=== PATIENT | male | born 1955 | race Asian ===

== ENCOUNTER 2020-04-23 11:14 | Emergency (ER) | payer MEDICARE, OTHER ==
[~2020-04-23] VITALS: Ht 167.6 cm; Wt 88.4 kg
--- NOTE | 2020-04-23 11:53 | NUR ---
PT AMBULATORY TO ROOM 36 W/ C/O NOT BEING ABLE TO URINATE SINCE LAST NOC. PT STATES HE TRIES TO GO AND IS UNABLE TO DO SO. PT ATTEMPTED TO GO TO RESTROOM X 1 W/O SUCCESS IN ED. BLADDER SCAN SHOWS 984 ML IN BLADDER. PT DENIES HX BPH. STATES HE HAD THIS ISSUE ONE OTHER TIME AND IT WENT AWAY ON ITS OWN. PT WAS SENT FROM PCP DR. JENSEN'S OFFICE. GASCA PLACED PER [facility] POLICY. PT RESTING ON GURNEY. NADN. MONITORS APPLIED. PT BP IMPROVED SIGNIFICANTLY AFTER GASCA PLACEMENT.
[2020-04-23 12:15] LABS: MEAN CORPUSCULAR HEMOGLOBIN 26.7 pg (27.5-34.5); MEAN CORPUSCULAR HGB CONC 32.4 g/dL (33.2-36.2); MEAN CORPUSCULAR VOLUME 82.3 fL (81-97); MEAN PLATELET VOLUME 8.8 fL (7.4-10.4); PLATELET COUNT 273 x10^3/uL (130-400); RED CELL DISTRIBUTION WIDTH 14.6 % (9.4-14.8)
[2020-04-23 12:19] LABS: ALBUMIN 3.6 g/dL (3.4-5.0); ANION GAP 12 mmol/L (5-15); CALCIUM 9.5 mg/dL (8.5-10.1); CHLORIDE 93 mmol/L (98-107)
[2020-04-23 12:42] LABS: MICROSCOPIC AUTO
[2020-04-23 12:53] LABS: ALBUMIN 3.6 g/dL (3.4-5.0); BILIRUBIN, DIRECT 0.1 mg/dL (0.1-0.2)
[2020-04-23 12:55] LABS: BILIRUBIN,INDIRECT 0.8 mg/dL (0.0-2.0); BILIRUBIN,TOTAL 0.9 mg/dL (0.2-1.0); TOTAL PROTEIN 7.9 g/dL (6.4-8.2)
[2020-04-23] MEDS ORDERED: SODIUM CHLORIDE FLUSH 10ML SYR IVF ONE (13:00)
[2020-04-23] MEDS ORDERED: SODIUM CHLORIDE 0.9% 1,000ML IVBOLUS ONE (13:00)
[2020-04-23 13:01] LABS: MD YES
--- NOTE | 2020-04-23 13:01 | NUR ---
PT RESTING IN [facility]. CULTURES DRAWN. VSS. IV STARTED. NAD.
[2020-04-23 13:03] LABS: BAND#(MANUAL) 0.66 x10^3/uL; BANDS%(MANUAL) 3 % (0-7); LYMPH#(MANUAL) 1.32 x10^3/uL (1-3.4); LYMPHS% (MANUAL) 6 % (22-44); MONOS#(MANUAL) 0.22 x10^3/uL (0.3-2.7); MONOS% (MANUAL) 1 % (2-9); SEGS% (MANUAL) 90 % (42-75)
[2020-04-23 13:06] LABS: <PLATELET ESTIMATE> ADEQUATE; <PLT MORPHOLOGY> NORMAL PLT MORPH; ANISOCYTOSIS 1+
[2020-04-23] MEDS ORDERED: CEFTRIAXONE PMX 1GM/50ML 50 ML IVPB ONE (13:30)
[2020-04-23] MEDS ORDERED: CEFTRIAXONE PMX 1GM/50ML 50 ML ONE (13:37)
[2020-04-23 14:13] VITALS: BP 131/71
--- NOTE | 2020-04-23 14:14 | NUR ---
PT STATES HE DOES NOT WANT TO BE ADMITTED. STATES HE HAS TO TAKE CARE OF HIS MOTHER AND HAS NO ONE TO HELP HIM. PT EDUCATED ON IMPORTANCE AND LAB WORK AND WHAT THAT MEANS. PT VERBALIZES UNDERSTANDING BUT STATES HE STILL NEEDS TO LEAVE HE CANNOT BE ADMITTED. ERP DR. HERRERA AWARE.
--- NOTE | 2020-04-23 14:59 | NUR ---
PT RECEIVED IN DEPTH CARE OF CATHETER W/ RETURN DEMONSTRATION. ALL QUESTIONS ANSWERED. PT PROVIDED W/ EXTRA SUPPLIES. PT EDUCATED ON IMPORTANCE OF STARTING ABX AND TO MAKE APPT W/ UROLOGIST. PT ALSO EDUCATED ON IMPORTANCE OF WHEN TO RETURN TO ED. PT VERBALIZES UNDERSTANDING.
[2020-04-23] MEDS ORDERED: OMNIPAQUE 350 MG/ML, 100ML BOTTLE ONE (15:14)
== END 2020-04-23 15:02 | disposition home or self-care (01) ==
LOC: ED 15:00
DX: N40.1 Benign prostatic hyperplasia with lower urinary tract symptoms (principal); R33.8 Other retention of urine; N30.01 Acute cystitis with hematuria; I10 Essential (primary) hypertension
CPT/HCPCS: 36415; 74177; 80048; 80076; 81001; 82040; 83605; 84145; 85025; 87040; 87086; 96361; 96365; 99285; J0696; J7030; Q9967

== ENCOUNTER 2020-04-24 06:35 | Emergency (ER) | payer MEDICARE ==
[~2020-04-24] VITALS: Ht 167.6 cm; Wt 86.2 kg
[2020-04-24 06:37] VITALS: BP 157/103
--- NOTE | 2020-04-24 06:50 | NUR ---
BLADDER SCAN OF 500ML ABD TIGHT PATIENT IN IMMENSE PAIN
[2020-04-24] MEDS ORDERED: LIDOCAINE 2%,20 ML JEL.PF.APP MM ONE ×2 (06:54→07:00)
--- NOTE | 2020-04-24 07:13 | NUR ---
14 COUDE CATHETER PLACED WITH CLEAR YELLOW URINE NO SAMPLE SENT TO LAB PER MD ORDER
== END 2020-04-24 08:08 | disposition home or self-care (01) ==
LOC: ED 07:11
DX: N40.1 Benign prostatic hyperplasia with lower urinary tract symptoms (principal); R33.8 Other retention of urine; N30.01 Acute cystitis with hematuria
CPT/HCPCS: 12041; 51702; 99284

== ENCOUNTER → 2020-06-21 | Outpatient (CLI) | payer MEDICARE ==
[~2020-06-21] MED LIST: ACET-1600 PO
== END | disposition home or self-care (01) ==
LOC: STAR 10:36
PROVIDERS: ATTEND Urology
DX: Z01.812 Encounter for preprocedural laboratory examination (principal); Z20.828 Contact with and (suspected) exposure to other viral communicable diseases; R00.0 Tachycardia, unspecified
CPT/HCPCS: 36415; 87635; 93005

== ENCOUNTER → 2021-03-13 | Outpatient (CLI) | payer MEDICARE ==
[~2021-03-13] MED LIST changes: +ALLO300T PO; +ATOR40TA78 PO; +LISI1TAB39 PO; +METF10007 PO; +METF500T17 PO; +MULT-449 PO; +TAMS-11 PO; +Vitamin B12 PO
[2021-03-13 12:12] LABS: ALBUMIN 3.7 g/dL (3.4-5.0); ANION GAP 4 mmol/L (5-15); CALCIUM 9.5 mg/dL (8.5-10.1); CHLORIDE 102 mmol/L (98-107); CREATININE 1.09 mg/dL (0.7-1.3)
[2021-03-13 12:16] LABS: ALANINE AMINOTRANSFERASE 21 U/L (12-78); ALKALINE PHOSPHATASE 91 U/L (45-117); BILIRUBIN,TOTAL 0.6 mg/dL (0.2-1.0)
== END | disposition home or self-care (01) ==
LOC: STAR 11:02
PROVIDERS: ATTEND Surgery
DX: Z01.818 Encounter for other preprocedural examination (principal); D48.1 Neoplasm of uncertain behavior of connective and other soft tissue
CPT/HCPCS: 36415; 80053; 93005

== ENCOUNTER 2021-03-20 09:54 | Day surgery (SDC) | payer MEDICARE ==
[~2021-03-20] VITALS: Ht 167.6 cm; Wt 78.3 kg
[2021-03-20] MEDS ORDERED: CHLORHEXIDINE 15 ML UDC PO ONE (10:30)
[2021-03-20] MEDS ORDERED: LACTATED RINGERS 1,000 ML IV SCH (10:30)
[2021-03-20 10:37] VITALS: BP 129/82
[2021-03-20] MEDS ORDERED: EPINEPHRINE 1 MG/ML, 1ML ONE (12:26)
[2021-03-20] MEDS ORDERED: BUPIVACAINE/PF 0.5% ONE (12:26)
[2021-03-20] MEDS ORDERED: MIDAZOLAM 1 MG/ML, 2ML ONE (12:31)
[2021-03-20] MEDS ORDERED: FENTANYL PF 100 MCG/2ML ONE (12:31)
[2021-03-20] MEDS ORDERED: LIDOCAINE 1%, 20ML ONE (12:34)
[2021-03-20] MEDS ORDERED: SODIUM CHLORIDE 0.9% PF 10ML ONE (12:46)
[2021-03-20] MEDS ORDERED: KETOROLAC 30 MG/1 ML ONE (12:46)
[2021-03-20] MEDS ORDERED: EPHEDRINE 50 MG/ML, 1ML IVPush PRN (13:00)
[2021-03-20] MEDS ORDERED: OXYcodone 5 MG/5 ML ORAL.SOL UDC PO PRN (13:00)
[2021-03-20] MEDS ORDERED: LABETALOL 5MG/ML, 20ML IV PRN (13:00)
[2021-03-20] MEDS ORDERED: FENTANYL PF 100 MCG/2ML IV PRN (13:00)
[2021-03-20] MEDS ORDERED: PROMETHAZINE 25 MG/ML, 1ML IVPush PRN (13:00)
[2021-03-20] MEDS ORDERED: HYDROmorphone 1 MG/ML, 1ML INJ IVPush PRN (13:00)
[2021-03-20] MEDS ORDERED: ONDANSETRON 2MG/ML, 2ML IVPush PRN (13:00)
[2021-03-20] MEDS ORDERED: hydrALAzine 20 MG/ML, 1ML IV PRN (13:00)
[2021-03-20] MEDS ORDERED: ACETAMINOPHEN 325 MG TABLET PO PRN (13:00)
[2021-03-20] MEDS ORDERED: NEOSPORIN OINT, 15GM ONE (13:18)
[2021-03-20] MEDS ORDERED: HYDR-2214 PO ×2 (13:25→14:00)
[2021-03-20] MEDS ORDERED: CEFAZOLIN 1,000 MG ONE (13:28)
[2021-03-20] MEDS ORDERED: PROPOFOL 10 MG/ML, 20ML ONE (13:28)
[2021-03-20] MEDS ORDERED: SUCCINYLCHOLINE 20 MG/ML, 10ML ONE (13:28)
[2021-03-20] MEDS ORDERED: DEXAMETHASONE 4 MG/ML, 1ML ONE (13:28)
[2021-03-20] MEDS ORDERED: ONDANSETRON 2MG/ML, 2ML ONE (13:28)
== END 2021-03-20 14:40 | disposition home or self-care (01) ==
LOC: OUT 09:54
PROVIDERS: ATTEND Surgery
DX: L72.3 Sebaceous cyst (principal); L72.0 Epidermal cyst; E11.9 Type 2 diabetes mellitus without complications; I10 Essential (primary) hypertension; E66.9 Obesity, unspecified; Z68.29 Body mass index [BMI] 29.0-29.9, adult; Z79.84 Long term (current) use of oral hypoglycemic drugs; Z79.899 Other long term (current) drug therapy
CPT/HCPCS: 11403; 82962; 88304; J0171; J0330; J0690; J1100; J1885; J2250; J2405; J2704; J3010; J7120